=== PATIENT | female | born 1995 | race Caucasian/White ===

== ENCOUNTER 2020-05-27 22:12 | Emergency (ER) | payer SELFPAY ==
[2020-05-27 22:19] VITALS: Ht 154.9 cm
[2020-05-28 01:35] VITALS: BP 134/81
== END 2020-05-28 01:35 | disposition home or self-care (01) ==
LOC: ED 22:12
DX: J03.90 Acute tonsillitis, unspecified (principal); M54.2 Cervicalgia; Z88.0 Allergy status to penicillin
CPT/HCPCS: J1100